=== PATIENT | male | born 1980 | race Two or more races ===

== ENCOUNTER 2019-03-27 21:29 | Emergency (ER) | payer BC ==
[~2019-03-27] VITALS: Ht 190.5 cm; Wt 99.8 kg
--- NOTE | 2019-03-27 21:45 | NUR ---
L EYE REDNESS, ITCHING SINCE 1599
[2019-03-27] MEDS ORDERED: FLUORESCEIN SODIUM OPHTH 1 EA STRIP ONE ×2 (22:20→22:37)
[2019-03-27] MEDS ORDERED: diphenhydrAMINE HCL 50 MG CAPSULE ONE (22:20)
[2019-03-27] MEDS ORDERED: KETOROLAC TROMETHAMINE INJ 30 MG/ML VIAL ONE (22:20)
[2019-03-27] MEDS ORDERED: METOCLOPRAMIDE HCL 10 MG TABLET ONE (22:21)
[2019-03-27] MEDS ORDERED: METOCLOPRAMIDE HCL 10 MG TABLET PO ONE (22:30)
[2019-03-27] MEDS ORDERED: KETOROLAC TROMETHAMINE INJ 30 MG/ML VIAL IM ONE (22:30)
[2019-03-27] MEDS ORDERED: FLUORESCEIN SODIUM OPHTH 1 EA STRIP OP ONE (22:30)
[2019-03-27] MEDS ORDERED: diphenhydrAMINE HCL 25 MG CAPSULE PO ONE (22:30)
--- NOTE | 2019-03-27 23:26 | NUR ---
Patient discharged to home in stable condition. Written and verbal after care instructions given. Patient verbalizes understanding of instruction.
[2019-03-27 23:29] VITALS: BP 133/68
== END 2019-03-27 23:30 | disposition home or self-care (01) ==
LOC: ER 21:29
DX: T15.02XA Foreign body in cornea, left eye, initial encounter (principal); Z85.47 Personal history of malignant neoplasm of testis; W45.8XXA Other foreign body or object entering through skin, initial encounter; Y93.89 Activity, other specified; Y92.89 Other specified places as the place of occurrence of the external cause; Y99.8 Other external cause status
CPT/HCPCS: 65222; 96372; 99284; A6403; J1885; J8597; Q0163